=== PATIENT | female | born 1975 | race Caucasian/White ===

== ENCOUNTER 2024-04-05 08:16 | Inpatient (IN) | payer BC ==
[~2024-04-05] VITALS: Ht 167.6 cm; Wt 74.8 kg
[2024-04-05 08:19] VITALS: TEMP 98.7
[2024-04-05] MEDS ORDERED: PROMETHAZINE HC25 M1 PO (08:29)
[2024-04-05] MEDS ORDERED: MOUNJARO12.5 MG/0. SQ (08:29)
[2024-04-05] MEDS ORDERED: SPIRONOLACTONE100 MG PO (08:29)
[2024-04-05] MEDS ORDERED: NP THYROID60 MG PO (08:29)
[2024-04-05] MEDS: ONDANSETRON HCL INJ 2MG/ML 2ML 2 MG/ML VIAL IV STA (08:32)
[2024-04-05] MEDS: SODIUM CHLORIDE 0.9% 1000ML 1,000 ML IV STA (08:33)
[2024-04-05] MEDS ORDERED: DIATRIZOATE MEGL/DIATRIZOA SOD 30 ML BTL PO ONE (08:34)
[2024-04-05] MEDS: Morphine 4mg INJECTION 4 MG/ML INJ IV STA (08:37)
[2024-04-05 08:44] LABS: BASOPHILS # (AUTO) 0.1 (0.0-0.1); EOSINOPHILS # (AUTO) 0.3 (0.0-0.4); EOSINOPHILS % 4.6 % (0.0-6.0); HEMATOCRIT 40.7 % (34.2-44.1); HEMOGLOBIN 13.7 g/dL (12.0-16.0); LYMPHOCYTES # (AUTO) 1.7 (1.0-3.2); MEAN CORPUSCULAR HEMOGLOBIN 30.2 pg (28-32); MEAN CORPUSCULAR HGB CONC 33.7 g/dL (31-35); MEAN CORPUSCULAR VOLUME 89.8 fL (81-99); MONOCYTES # (AUTO) 0.4 (0.2-0.8); NEUTROPHILS # (AUTO) 3.6 (2.1-6.9); NEUTROPHILS % 59.2 % (38.7-80.0); PLATELET COUNT 299 x10e3/uL (140-360); RED BLOOD COUNT 4.53 x10e6/uL (3.6-5.1); RED CELL DISTRIBUTION WIDTH 12.3 % (11.7-14.4); WHITE BLOOD COUNT 6.11 x10e3/uL (4.8-10.8)
[2024-04-05 08:58] LABS: INR 0.93
[2024-04-05 08:59] LABS: PARTIAL THROMBOPLASTIN TIME 40.8 seconds (23.8-35.5)
[2024-04-05 09:09] LABS: ALANINE AMINOTRANSFERASE 16 IU/L (0-55); ALBUMIN 3.6 g/dL (3.5-5.0); ALBUMIN/GLOBULIN RATIO 1.1 (0.8-2.0); ALKALINE PHOSPHATASE 95 IU/L (40-150); ANION GAP 14.7 mmol/L (8-16); BLOOD UREA NITROGEN 17 mg/dL (7-26); BUN/CREATININE RATIO 20 (6-25); CARBON DIOXIDE 22 mmol/L (22-29); CHLORIDE 106 mmol/L (98-107); CREATINE KINASE 55 IU/L (29-168); CREATININE, SERUM 0.83 mg/dL (0.57-1.11); EST GLOMERULAR FILTRATION RATE 86 ML/MIN (>=60); GLUCOSE 78 mg/dL (74-118); LIPASE 25 U/L (8-78); MAGNESIUM 1.7 MG/DL (1.3-2.1); POTASSIUM 3.7 mmol/L (3.5-5.1); SODIUM 139 mmol/L (136-145); TOTAL PROTEIN 6.9 g/dL (6.5-8.1)
[2024-04-05 09:16] LABS: TROPONIN I 0.006 ng/mL (0-0.300)
[2024-04-05] MEDS ORDERED: IOPAMIDOL 370 MG/ML 100 ML INFUS..BTL INJ ONE (09:54)
[2024-04-05] MEDS: HYDROMORPHONE 1MG/1ML INJ IV STA ×2 (10:15→11:15)
[2024-04-05] MEDS: KETOROLAC TROMETHAMINE 30 MG/ML VIAL IV STA (11:15)
[2024-04-05] MEDS ORDERED: HYDROMORPHONE 1MG/1ML INJ IV PRN (12:30)
[2024-04-05] MEDS ORDERED: PROMETHAZINE HCL (IM) 25 MG/ML VIAL IM PRN (12:30)
[2024-04-05 13:11] VITALS: PULSE 73; RESP 18
[2024-04-05] MEDS: SODIUM CHLORIDE 0.9% 1000ML 1,000 ML IV SCH (13:15)
[2024-04-05] MEDS ORDERED: SIMETHICONE 80 MG CHEW PO PRN (13:30)
[2024-04-05] MEDS ORDERED: POTASSIUM CHLORIDE 20 MEQ TAB CR PO PRN (13:30)
[2024-04-05] MEDS ORDERED: HYDRALAZINE HCL 20 MG/ML VIAL IV PRN (13:30)
[2024-04-05] MEDS ORDERED: BENZONATATE 100 MG CAP PO PRN (13:30)
[2024-04-05] MEDS ORDERED: ALBUTEROL/IPRATROPIUM 3 ML NEB NEB PRN (13:30)
[2024-04-05] MEDS ORDERED: DOCUSATE SODIUM 100 MG CAP PO PRN (13:30)
[2024-04-05] MEDS ORDERED: Morphine 2mg Syringe 2 MG/ML SYR IV PRN (13:30)
[2024-04-05 14:00] VITALS: BP 147/86; PULSE 69; RESP 18; TEMP 97.8; O2SAT 100
[2024-04-05] MEDS: D5NS/KCL 20MEQ 1,000 ML IV SCH (14:10)
[2024-04-05 16:02] VITALS: BP 123/76; PULSE 63; RESP 18; TEMP 97.8; O2SAT 100
[2024-04-05] MEDS: HYDROMORPHONE 1MG/1ML INJ IV PRN (16:38)
[2024-04-05] MEDS ORDERED: SODIUM CHLORIDE 0.9% 1000ML 1,000 ML IV PRN (17:30)
[2024-04-05] MEDS: MULTIVITAMINS- 12 INJECTION 10 ML, FOLIC ACID MDV 1 MG, THIAMINE HCL INJ 100 MG in SODI... IV SCH (17:53)
[2024-04-05 18:40] VITALS: PULSE 58; RESP 18; O2SAT 98
[2024-04-05 21:00] VITALS: BP 117/76; PULSE 68; RESP 16; TEMP 98.4; O2SAT 100
[2024-04-06] VITALS (9 sets, daily range): BP systolic 109–144; BP diastolic 72–92; PULSE 65–78; RESP 16–20; TEMP 97.6–98.6; O2SAT 99–100
[2024-04-06 05:24] LABS: BASOPHILS # (AUTO) 0.1 (0.0-0.1); BASOPHILS % 1.1 % (0.0-1.0); EOSINOPHILS # (AUTO) 0.3 (0.0-0.4); EOSINOPHILS % 5.2 % (0.0-6.0); HEMATOCRIT 38.6 % (34.2-44.1); HEMOGLOBIN 12.3 g/dL (12.0-16.0); LYMPHOCYTES # (AUTO) 1.9 (1.0-3.2); LYMPHOCYTES % 29.5 % (18.0-39.1); MEAN CORPUSCULAR HEMOGLOBIN 29.9 pg (28-32); MEAN CORPUSCULAR HGB CONC 31.9 g/dL (31-35); MEAN CORPUSCULAR VOLUME 93.7 fL (81-99); MONOCYTES # (AUTO) 0.5 (0.2-0.8); MONOCYTES % 7.6 % (4.4-11.3); NEUTROPHILS # (AUTO) 3.6 (2.1-6.9); NEUTROPHILS % 56.4 % (38.7-80.0); PLATELET COUNT 198 x10e3/uL (140-360); RED BLOOD COUNT 4.12 x10e6/uL (3.6-5.1); RED CELL DISTRIBUTION WIDTH 12.3 % (11.7-14.4); WHITE BLOOD COUNT 6.31 x10e3/uL (4.8-10.8)
[2024-04-06 05:53] LABS: ALBUMIN 3.1 g/dL (3.5-5.0); ALBUMIN/GLOBULIN RATIO 1.2 (0.8-2.0); ANION GAP 14.7 mmol/L (8-16); CALCIUM 8.5 mg/dL (8.4-10.2); CREATININE, SERUM 0.77 mg/dL (0.57-1.11); POTASSIUM 3.7 mmol/L (3.5-5.1); TOTAL PROTEIN 5.7 g/dL (6.5-8.1)
[2024-04-06] MEDS: DEXTROSE 50% SYRINGE 50 ML IV PRN (06:08)
[2024-04-06 06:36] LABS: FERRITIN 36.71 ng/mL (4.63-204.00)
[2024-04-06] MEDS ORDERED: PANTOPRAZOLE SOD 40 MG TABEC PO SCH (07:30)
[2024-04-06 08:08] LABS: FOLATE > 40.0 ng/mL (7.0-15.4)
[2024-04-06] MEDS ORDERED: LIDOCAINE 4% PATCH TP PRN (09:00)
[2024-04-06] MEDS: DEXTROSE 5%/0.9% SOD CHL 1,000 ML IV SCH (09:43)
[2024-04-06] MEDS: MULTIVITAMINS- 12 INJECTION 10 ML, FOLIC ACID MDV 1 MG, THIAMINE HCL INJ 100 MG in SODI... IV SCH (12:05)
[2024-04-06] MEDS ORDERED: LIDOCAINE HCL 2% LOCAL INJ 5 ML SDV VIAL INJ ONE (13:28)
[2024-04-06] MEDS ORDERED: FENTANYL CITRATE/PF 100MCG/2 ML INJ ONE (13:28)
[2024-04-06] MEDS ORDERED: PROPOFOL IV EMULSION 10 MG/ML 20 ML VIAL ONE ×3 (13:28→13:49)
[2024-04-06] MEDS: ONDANSETRON HCL INJ 2MG/ML 2ML 2 MG/ML VIAL IV PRN (15:00)
[2024-04-06] MEDS: SUCRALFATE 1 GM/10 ML SUSP PO SCH (17:29)
[2024-04-06] MEDS: DIPHENHYDRAMINE HCL 25 MG CAP PO PRN (21:56)
[2024-04-06] MEDS: MELATONIN 5 MG TABLET PO PRN (21:56)
[2024-04-07] MEDS: ACETAMINOPHEN 325 MG TAB PO PRN (00:03)
[2024-04-07 00:36] VITALS: BP 131/92; PULSE 71; RESP 20; TEMP 97.8; O2SAT 100
[2024-04-07 04:00] VITALS: BP 124/83; PULSE 67; RESP 18; TEMP 98.2; O2SAT 100
[2024-04-07 07:50] VITALS: BP 128/77; PULSE 63; RESP 20; TEMP 98.2; O2SAT 99
[2024-04-07 08:51] VITALS: BP 128/77; PULSE 63; RESP 20; TEMP 98.2; O2SAT 99
[2024-04-07 09:40] VITALS: PULSE 65; RESP 18; O2SAT 97
[2024-04-07 10:52] LABS: BASOPHILS % 0.8 % (0.0-1.0); EOSINOPHILS # (AUTO) 0.4 (0.0-0.4); EOSINOPHILS % 8.3 % (0.0-6.0); HEMATOCRIT 33.5 % (34.2-44.1); HEMOGLOBIN 11.4 g/dL (12.0-16.0); LYMPHOCYTES # (AUTO) 1.5 (1.0-3.2); LYMPHOCYTES % 29.5 % (18.0-39.1); MEAN CORPUSCULAR HEMOGLOBIN 30.5 pg (28-32); MEAN CORPUSCULAR VOLUME 89.6 fL (81-99); MONOCYTES # (AUTO) 0.5 (0.2-0.8); MONOCYTES % 9.3 % (4.4-11.3); NEUTROPHILS # (AUTO) 2.6 (2.1-6.9); NEUTROPHILS % 51.9 % (38.7-80.0); PLATELET COUNT 244 x10e3/uL (140-360); RED BLOOD COUNT 3.74 x10e6/uL (3.6-5.1); RED CELL DISTRIBUTION WIDTH 12.2 % (11.7-14.4); WHITE BLOOD COUNT 5.08 x10e3/uL (4.8-10.8)
[2024-04-07 11:20] LABS: CALCIUM 8.3 mg/dL (8.4-10.2); CREATININE, SERUM 0.79 mg/dL (0.57-1.11)
[2024-04-07 12:13] VITALS: BP 146/96; PULSE 70; RESP 18; TEMP 98.3; O2SAT 100
[2024-04-07] MEDS: MULTIVITAMINS- 12 INJECTION 10 ML, FOLIC ACID MDV 1 MG, THIAMINE HCL INJ 100 MG in SODI... IV SCH (12:42)
== END 2024-04-07 15:50 | disposition home or self-care (01) | DRG 382 ==
LOC: ER 08:21 → ERHOLD 12:27 → MED/SURG 14:03
PROVIDERS: ADMIT Internal Medicine; ATTEND Internal Medicine
PROC: 0DB68ZX Excision of Stomach, Via Natural or Artificial Opening Endoscopic, Diagnostic (ICD-10-PCS; principal; 2024-04-06 13:34)
DX: K28.9 Gastrojejunal ulcer, unspecified as acute or chronic, without hemorrhage or perforation (principal); E03.9 Hypothyroidism, unspecified; I10 Essential (primary) hypertension; E86.0 Dehydration; K21.00 Gastro-esophageal reflux disease with esophagitis, without bleeding; R11.2 Nausea with vomiting, unspecified; Z79.85 Long-term (current) use of injectable non-insulin antidiabetic drugs; Z79.890 Hormone replacement therapy; Z98.84 Bariatric surgery status; Z90.49 Acquired absence of other specified parts of digestive tract; Z82.49 Family history of ischemic heart disease and other diseases of the circulatory system
CPT/HCPCS: 36415; 43239; 71045; 74177; 80048; 80053; 82550; 82607; 82728; 82746; 82784; 82948; 83540; 83690; 83735; 84466; 84484; 84702; 85025; 85610; 85730; 88305; 88342; 93005; 94799; 99284; J1171; J1885; J2003; J2270; J2405; J2470; J3411; J7030; J7042; J7799; Q9963; Q9967

== ENCOUNTER → 2024-05-26 | Day surgery (SDC) | payer BC ==
[~2024-05-26] MED LIST: CARAFATE1 GM PO; DEXMEDETOMIDINE HCL 200 MCG/2 ML VIAL ONE; FENTANYL CITRATE/PF 100MCG/2 ML INJ ONE; LIDOCAINE HCL 2% LOCAL INJ 5 ML SDV VIAL INJ ONE; METOCLOPRAMIDE HCL 10 MG/2ML VIAL ONE; MOUNJARO12.5 MG/0. SQ; NP THYROID60 MG PO; PROMETHAZINE HC25 M1 PO; PROPOFOL IV EMULSION 10 MG/ML 20 ML VIAL ONE; SPIRONOLACTONE100 MG PO; TRULANCE3 MG PO
[2024-05-26] MEDS: LACTATED RINGER'S 1,000 ML ONE (12:46)
[2024-05-26 13:18] VITALS: TEMP 97.8
[2024-05-26 13:40] VITALS: BP 121/81; PULSE 71; RESP 18; O2SAT 99
== END | disposition home or self-care (01) ==
LOC: OR 10:29
PROVIDERS: ATTEND Internal Medicine Gastroenterology
DX: K25.9 Gastric ulcer, unspecified as acute or chronic, without hemorrhage or perforation (principal); Z98.84 Bariatric surgery status; K59.09 Other constipation; I10 Essential (primary) hypertension; Z71.89 Other specified counseling; E03.9 Hypothyroidism, unspecified; Z79.85 Long-term (current) use of injectable non-insulin antidiabetic drugs; Z79.899 Other long term (current) drug therapy; Z68.25 Body mass index [BMI] 25.0-25.9, adult; Z71.3 Dietary counseling and surveillance; Z80.0 Family history of malignant neoplasm of digestive organs
CPT/HCPCS: 43235; 81025; J2003; J2470; J2704; J2765; J3010; J7121

== ENCOUNTER 2024-11-08 08:38 | Emergency (ER) | payer SELFPAY ==
[~2024-11-08] VITALS: Ht 167.6 cm; Wt 61.7 kg
[~2024-11-08 08:38] MED LIST changes: -DEXMEDETOMIDINE HCL 200 MCG/2 ML VIAL ONE; -FENTANYL CITRATE/PF 100MCG/2 ML INJ ONE; -LIDOCAINE HCL 2% LOCAL INJ 5 ML SDV VIAL INJ ONE; -METOCLOPRAMIDE HCL 10 MG/2ML VIAL ONE; -PROPOFOL IV EMULSION 10 MG/ML 20 ML VIAL ONE
[2024-11-08 08:55] VITALS: TEMP 98.2
[2024-11-08] MEDS: SODIUM CHLORIDE 0.9% 1000ML 1,000 ML IV STA (09:14)
[2024-11-08] MEDS: ONDANSETRON HCL INJ 2MG/ML 2ML 2 MG/ML VIAL IV PRN (09:15)
[2024-11-08] MEDS: DICYCLOMINE HCL 20 MG/2 ML VIAL IM ONE (09:15)
[2024-11-08 09:17] LABS: BASOPHILS % 0.8 % (0.0-1.0); EOSINOPHILS % 4.8 % (0.0-6.0); LYMPHOCYTES % 17.0 % (18.0-39.1); MONOCYTES % 8.2 % (4.4-11.3); NEUTROPHILS % 68.9 % (38.7-80.0); RED CELL DISTRIBUTION WIDTH 12.4 % (11.7-14.4)
[2024-11-08 09:27] LABS: LEUKOCYTE ESTERASE ,URINE NEGATIVE (NEGATIVE); PROTEIN,URINE DIPSTICK NEGATIVE (NEGATIVE); URINE UROBILINOGEN 2.0 mg/dL (0.2 - 1)
[2024-11-08] MEDS: MAGNESIUM/ALUMINUM/SIMETHICONE 30 ML UDC PO ONE (09:46)
[2024-11-08] MEDS: LIDOCAINE VISC 2% SOLN 15 ML UDC PO ONE (09:46)
[2024-11-08 09:47] LABS: EST GLOMERULAR FILTRATION RATE 96.0 ML/MIN (>=60)
[2024-11-08] MEDS: BELLADONNA ALK/PHENOBARBITAL 5 ML UDC PO STA (09:47)
[2024-11-08 10:10] VITALS: PULSE 83; RESP 17
[2024-11-08] MEDS ORDERED: METOCLOPRAMIDE10 MG PO (10:27)
[2024-11-08] MEDS: METOCLOPRAMIDE HCL 10 MG/2ML VIAL IV ONE (10:34)
[2024-11-08 10:38] LABS: EPITHELIAL CELLS,URINE FEW /LPF; WBC,URINE (MAN) 0-5 /HPF (0-5)
[2024-11-08 11:00] VITALS: BP 119/84; PULSE 89; RESP 18; TEMP 98; O2SAT 99
== END 2024-11-08 10:55 | disposition home or self-care (01) ==
LOC: ER 08:49
DX: R10.13 Epigastric pain (principal); R11.2 Nausea with vomiting, unspecified; I10 Essential (primary) hypertension; E03.9 Hypothyroidism, unspecified; Z87.19 Personal history of other diseases of the digestive system
CPT/HCPCS: 36415; 80053; 81001; 83690; 85025; 99283; J0500; J2405; J2765; J7030